=== PATIENT | female | born 1970 | race Caucasian/White ===

== ENCOUNTER 2016-06-03 19:46 | Emergency (ER) | payer BC ==
[2016-06-03 20:29] VITALS: BP 118/56
[2016-06-03] MEDS ORDERED: Ethyl Chloride SPRAY (NF) BTL ONE (21:05)
[2016-06-03] MEDS ORDERED: Ibuprofen TAB* 400 MG PO ONE (21:16)
[2016-06-03] MEDS ORDERED: Sulfamethox/Trimethoprim DS 800/160* TAB PO ONE (21:18)
--- NOTE | 2016-06-03 21:22 | UC ---
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 today she popped it and green drainage came out. now red and painful Onset Severity: Mild Current Severity: Moderate Location: Ear (Left) - outdise of ear on face Character: Swelling, Redness, Painful Aggravating: Touch Alleviating: Nothing Associated Signs & Symptoms: Positive: Negative - Allergy/Home Medications Allergies/Adverse Reactions: Allergies Allergy/AdvReac Type Severity Reaction Status Date / Time No Known Allergies Allergy Verified 08/09/13 18:33 Review of Systems Constitutional: Negative Respiratory: Negative Cardiovascular: Negative Neurological: Negative Psychological: Negative All Other Systems Reviewed And Are Negative: Yes PMH/Surg Hx/FS Hx/Imm Hx Previously Healthy: Yes Endocrine History Of: Reports: Thyroid Disease - [facility] Denies: Diabetes Cardiovascular History Of: Denies: Cardiac Disorders, Hypertension Respiratory History Of: Denies: COPD, Asthma GI/ History Of: Denies: Ulcer - Surgical History Surgical History: None - Family History Known Family History: Positive: None - Social History Occupation: Employed Part-time Lives: With Family Alcohol Use: None Substance Use Type: None Smoking Status (MU): Light Every Day Tobacco Smoker Type: Cigarettes Amount Used/How Often: 1/2 PPD Cessation Counseling: Patient Advised to Stop Physical Exam Triage Information Reviewed: Yes Appearance: Well-Appearing, No Pain Distress, Well-Nourished Vital Signs: Initial Vital Signs Temp 99.2 F 06/03/16 20:25 Pulse 69 06/03/16 20:25 Resp 18 06/03/16 20:25 BP 118/56 06/03/16 20:25 Pulse Ox 100 06/03/16 20:25 ENT Exam: Normal ENT: Positive: TMs normal Neck: Positive: No Lymphadenopathy Respiratory Exam: Normal Respiratory: Positive: Lungs clear Cardiovascular Exam: Normal Cardiovascular: Positive: RRR Neurological Exam: Normal Psychological Exam: Normal Skin: Positive: Other - 1.5 cm raised, erythemic, tender lesion L face near ear , small scabbed area and central fluctuance Course/Dx - Course Course Of Treatment: Time out completed. abscess cleasned with hibiclense solution. ethylchloride applied for topical anesthesia. #11 blade used to create small incision. small amount of purulent drainage manually expressed from wound. C&S obtained. wound thoroughly cleaned with saline and hibiclense, gauze dressing applied. - Differential Diagnoses - Skin Complaint Differential Diagnoses: Abscess, Cellulitis, MRSA - Diagnoses Provider Diagnoses: skin abscess Discharge - Discharge Plan Condition: Stable Disposition: HOME Prescriptions: Sulfamethox/Trimethoprim DS* [Bactrim DS 800/160 TAB*] 1 tab PO BID #20 tab Referrals: Andre Reyes MD [Primary Care Provider] - 2 Days (for recheck wound) Additional Instructions: apply warm packs to wound take Bactrim as prescribed ibuprofen 800mg every 6 hours as needed for pain return if symptoms worsen at any time
== END 2016-06-03 21:35 | disposition home or self-care (01) ==
LOC: UCEAST 19:46
DX: L02.01 Cutaneous abscess of face (principal); F17.290 Nicotine dependence, other tobacco product, uncomplicated; E06.3 Autoimmune thyroiditis
CPT/HCPCS: 87070; 87076; 87205; 87640; 87641; 99212; A9270-GY; G0463